=== PATIENT | male | born 1980 | race Caucasian/White ===

== ENCOUNTER 2019-09-12 08:57 | Inpatient (IN) | payer BC, OTHER ==
[2019-09-12] MEDS ORDERED: fentaNYL 100 MCG/2 ML SDV ONE (10:14)
[2019-09-12] MEDS ORDERED: Propofol 200 MG/20 ML SDV ONE (10:14)
[2019-09-12] MEDS ORDERED: Midazolam 1 MG/ML 2 ML SDV ONE (10:14)
[2019-09-12] MEDS ORDERED: Dextrose 5%-Lactated Ringers 1,000 ML IV SCH (10:15)
--- NOTE | 2019-09-12 13:42 | US ---
Abdomen Ltd CLINICAL HISTORY: Liver lesion COMPARISON: CT scan 09/08/2019. TECHNIQUE: Real-time images were obtained through the right upper quadrant. FINDINGS: The liver contains a 1.7 x 1.3 x 1.2 cm well demarcated relatively homogeneous hyperechoic nodule. There is no other mass or cyst identified. No intrahepatic biliary dilatation is seen. There is a filling defect in the gallbladder this is nonmobile and nonshadowing. This could represent an adenomatous polyp. A gallbladder fold is also a consideration. There is no inflammatory change. The common bile duct measures 4 mm. . The right kidney has a normal appearance. The IVC is normal. There is no ascites IMPRESSION: 1.7 x 1.3 x 1.2 cm well-circumscribed hyperechoic nodule in the right lobe of the liver. This is consistent with a hepatic hemangioma. Persistent fixed filling defect in the gallbladder may represent the an adenomatous polyp or possibly a gallbladder fold. No stones are seen
[2019-09-12] MEDS ORDERED: Sodium Chloride 0.9% 1,000 ML IV SCH (16:00)
--- NOTE | 2019-09-12 16:24 | PCM.CONS ---
H&P History of Present Illness - General Date of Service: 09/12/19 Admit Problem/Dx: Admission Diagnosis/Problem Admission Diagnosis/Problem Mass History Limitations: Reports: No Limitations - History of Present Illness Initial Comments - Free Text/Narative: Mr. Rick is a 39-year-old gentleman who I been asked to see by Dr. Morris for hospitalist consult to assess medical risk for surgery. Mr. Rick has not felt well for the past 5 months and is experienced a 55 pound weight loss. In April of this past year he had difficulty with kidney stones resulting in decreased appetite, he recovered from that and then around the holidays was diagnosed with influenza A which again resulted in prolonged symptoms and further weight loss. He had been slowly feeling improved until the beginning of this month, since then has experienced progressive decrease in appetite, weakness, lightheadedness, and shortness of breath. CT scan was obtained of the abdomen and showed possible colon abnormality. Colonoscopy was performed today by Dr. Morris and shows probable colon malignancy. Laboratory studies have been obtained and he is found to be significantly anemic with a hemoglobin of 7.5 and microcytic indices. Iron levels are pending at this time. Has no history of significant cardiac or pulmonary disease and no significant risk factors for coronary artery disease. He otherwise has been fairly healthy denies recent symptoms of chest pain or pressure, PND, orthopnea, peripheral edema, or palpitations. No recent fevers, chills, sweats, cough, pleuritic pain , or hemoptysis. He has never had general anesthetic before, there is no family history of adverse reaction to general anesthesia. No history of clotting abnormalities, deep vein thrombosis, or pulmonary emboli. Right Abdominal Pain Score (Numeric/FACES): 3 - Related Data Allergies/Adverse Reactions: Allergies Allergy/AdvReac Type Severity Reaction Status Date / Time No Known Allergies Allergy Verified 09/12/19 09:30 Home Medications: Home Meds NK [No Known Home Meds] 12/02/13 [History] Past Medical History - Past Health History Medical/Surgical History: Denies Medical/Surgical History HEENT History: Reports: Impaired Vision Cardiovascular History: Reports: None Respiratory History: Reports: None Gastrointestinal History: Reports: Other (See Below) Other Gastrointestinal History: ABNORMAL CT OF ABDOMEN AND PELVIS. LOOSE STOOLS AND NO APPETITE Genitourinary History: Reports: None Musculoskeletal History: Reports: None Neurological History: Reports: None Psychiatric History: Reports: None Endocrine/Metabolic History: Reports: None Hematologic History: Reports: None Oncologic (Cancer) History: Reports: None Dermatologic History: Reports: None - Infectious Disease History Infectious Disease History: Reports: Chicken Pox - Past Surgical History Head Surgeries/Procedures: Reports: None HEENT Surgical History: Reports: Other (See Below) Other HEENT Surgeries/Procedures: WISDOM TEETH EXTRACTED Cardiovascular Surgical History: Reports: None Respiratory Surgical History: Reports: None GI Surgical History: Reports: None Endocrine Surgical History: Reports: None Musculoskeletal Surgical History: Reports: None Dermatological Surgical History: Reports: None Social & Family History - Family History Family Medical History: Noncontributory - Tobacco Use Smoking Status *Q: Never Smoker Second Hand Smoke Exposure: No - Caffeine Use Caffeine Use: Reports: Other - Recreational Drug Use Recreational Drug Use: No H&P Review of Systems - Review of Systems: Review Of Systems: See Below General: Reports: Weakness, Fatigue, Decreased Appetite. Denies: Fever, Chills HEENT: Reports: No Symptoms Pulmonary: Reports: Shortness of Breath. Denies: Wheezing, Pleuritic Chest Pain , Cough, Sputum, Hemoptysis Cardiovascular: Reports: Dyspnea on Exertion. Denies: Chest Pain, Palpitations , Orthopnea, PND, Edema, Lightheadedness, Syncope Gastrointestinal: Reports: No Symptoms Genitourinary: Reports: No Symptoms Musculoskeletal: Reports: No Symptoms Skin: Reports: No Symptoms Psychiatric: Reports: No Symptoms Neurological: Reports: No Symptoms Hematologic/Lymphatic: Reports: Anemia. Denies: Easy Bleeding, Easy Bruising Immunologic: Reports: Environmental Allergy, Mold Allergy. Denies: Anaphylaxis Exam - Exam Exam: See Below - Vital Signs Vital Signs: Last Vital Signs Temp 98.2 F 09/12/19 13:27 Pulse 78 09/12/19 13:27 Resp 16 09/12/19 13:27 BP 109/69 09/12/19 13:27 Pulse Ox 97 09/12/19 13:27 Weight: 162 lb - Exam Quality Assessment: DVT Prophylaxis General: Alert, Oriented, Cooperative, Mild Distress Neck: Supple, Trachea Midline, +2 Carotid Pulse wo Bruit Lungs: Clear to Auscultation, Normal Respiratory Effort Cardiovascular: Regular Rate, Regular Rhythm, Normal S1, Normal S2. No: Systolic Murmur, Diastolic Murmur GI/Abdominal Exam: Soft, Non-Tender, No Organomegaly, No Distention Extremities: Normal Inspection, Non-Tender, No Pedal Edema Skin: Warm, Dry, Intact Neuro Extensive - Mental Status: Alert, Oriented x3, Normal Mood/Affect, Normal Cognition, Memory Intact - Patient Data Lab Results Last 24 hrs: Laboratory Results - last 24 hr 09/12/19 09/12/19 09/12/19 Range/Units 13:06 13:06 13:06 WBC 8.9 (4.5-11.0) K/uL RBC 3.77 L (4.30-5.90) M/uL Hgb 7.5 L (12.0-15.0) g/dL Hct 26.4 L (40.0-54.0) % MCV 70 L (80-98) fL MCH 20 L (27-31) pg MCHC 28 L (32-36) % Plt Count 732 H (150-400) K/uL Neut % (Auto) 64 (36-66) % Lymph % (Auto) 26 (24-44) % [place] % (Auto) 10 H (2-6) % Eos % (Auto) 1 L (2-4) % Baso % (Auto) 0 (0-1) % Sodium 138 L (140-148) mmol/L Potassium 4.4 (3.6-5.2) mmol/L Chloride 102 (100-108) mmol/L Carbon Dioxide 30 (21-32) mmol/L Anion Gap 10.4 (5.0-14.0) mmol/L BUN 16 (7-18) mg/dL Creatinine 0.8 (0.8-1.3) mg/dL Est Cr Clr Drug Dosing 116.75 mL/min Estimated GFR (MDRD) > 60 (>60) Glucose 129 H (74-106) mg/dL Calcium 8.8 (8.5-10.1) mg/dL Phosphorus 4.0 (2.5-4.9) mg/dL Magnesium 1.8 (1.8-2.4) mg/dL Iron (65-175) ug/dL TIBC (250-450) ug/dl % Saturation (20-55) % Total Bilirubin 0.2 (0.2-1.0) mg/dL AST 12 L (15-37) U/L ALT 17 (12-78) U/L Alkaline Phosphatase 69 (46-116) U/L Total Protein 7.0 (6.4-8.2) g/dL Albumin 2.2 L (3.4-5.0) g/dL Globulin 4.8 H (2.3-3.5) g/dL Albumin/Globulin Ratio 0.5 L (1.2-2.2) Blood Type B POSITIVE Gel Antibody Screen Negative Crossmatch See Detail 09/12/19 Range/Units 15:35 WBC (4.5-11.0) K/uL RBC (4.30-5.90) M/uL Hgb (12.0-15.0) g/dL Hct (40.0-54.0) % MCV (80-98) fL MCH (27-31) pg MCHC (32-36) % Plt Count (150-400) K/uL Neut % (Auto) (36-66) % Lymph % (Auto) (24-44) % [place] % (Auto) (2-6) % Eos % (Auto) (2-4) % Baso % (Auto) (0-1) % Sodium (140-148) mmol/L Potassium (3.6-5.2) mmol/L Chloride (100-108) mmol/L Carbon Dioxide (21-32) mmol/L Anion Gap (5.0-14.0) mmol/L BUN (7-18) mg/dL Creatinine (0.8-1.3) mg/dL Est Cr Clr Drug Dosing mL/min Estimated GFR (MDRD) (>60) Glucose (74-106) mg/dL Calcium (8.5-10.1) mg/dL Phosphorus (2.5-4.9) mg/dL Magnesium (1.8-2.4) mg/dL Iron 9 L (65-175) ug/dL TIBC 217 L (250-450) ug/dl % Saturation 4 L (20-55) % Total Bilirubin (0.2-1.0) mg/dL AST (15-37) U/L ALT (12-78) U/L Alkaline Phosphatase (46-116) U/L Total Protein (6.4-8.2) g/dL Albumin (3.4-5.0) g/dL Globulin (2.3-3.5) g/dL Albumin/Globulin Ratio (1.2-2.2) Blood Type Gel Antibody Screen Crossmatch Result Diagrams: 09/12/19 13:06 09/12/19 13:06 Sepsis Event Note - Focused Exam Vital Signs: Vital Signs Temp Pulse Resp BP Pulse Ox 09/12/19 13:27 98.2 F 78 16 109/69 97 09/12/19 13:12 78 16 107/63 98 09/12/19 12:57 78 16 109/64 95 09/12/19 12:42 72 16 103/63 97 09/12/19 12:27 75 16 112/62 99 09/12/19 12:12 96.6 F L 69 16 107/57 L 98 09/12/19 12:06 96.8 F L 73 16 104/63 97 09/12/19 12:00 71 16 98/56 L 98 09/12/19 11:56 68 16 103/56 L 100 09/12/19 11:50 67 12 98/48 L 100 09/12/19 11:45 95.9 F L 70 12 99/54 L 100 09/12/19 09:28 98.2 F 91 16 130/82 97 Date Exam was Performed: 09/12/19 Time Exam was Performed: 16:19 *Q Meaningful Use (ADM) - VTE Risk Assess *Q Each Risk Factor Represents 1 Point: None Total Score 1 Point Risk Factors: 0 Each Risk Factor Represents 2 Points: None, Malignancy (present or previous) Total Score 2 Point Risk Factors: 2 Each Risk Factor Represents 3 Points: None Total Score 3 Point Risk Factors: 0 Consult PN Assessment/Plan Procedures: Procedures CHEST X-RAY 2VW FRONTAL&LATL (12/02/13) EMERGENCY DEPT VISIT (12/02/13) IMMUNIZATION ADMIN (12/02/13) INTMD RPR S/TR/EXT 7.6-12.5 (12/02/13) TDAP VACCINE 7 YRS/> IM (12/02/13) Problem List Initiated/Reviewed/Updated: Yes My Orders Last 24 Hours: My Active Orders 09/12/19 16:17 Sodium Ferric Gluconate Cmplex [Ferrlecit IV] 250 mg Sodium Chloride 0.9% [ Normal Saline] 100 ml IV ONETIME 09/13/19 16:00 Sodium Ferric Gluconate Cmplex [Ferrlecit IV] 250 mg Sodium Chloride 0.9% [ Normal Saline] 100 ml IV ONETIME Plan: ASSESSMENT AND RECOMMENDATIONS PROBABLE COLON CANCER-to undergo surgical resection tomorrow by Dr. Morris. He has no significant history of cardiopulmonary disease and no significant risk factors for coronary artery disease. Recent activity and associated symptoms of shortness of breath are likely secondary to his severe anemia. He is at low risk for general anesthetic. -Transfusion orders as per Dr. Morris -Postoperative care per Dr. Morris MICROCYTIC ANEMIA-likely secondary to ongoing slow blood loss and iron loss from colon mass -Level pending -IV iron replacement today and tomorrow -Begin oral iron replacement postoperatively Requesting Provider: LAURA Date Consult Requested: 09/12/19 Reason for Consult: Preoperative medical evaluation Patient History Reviewed: Yes
[2019-09-12] MEDS ORDERED: Sodium Ferric Gluconate Cmplex 250 MG in Sodium Chloride 0.9% 100 ML IV ONE (18:00)
[2019-09-13] MEDS ORDERED: Lidocaine 1% with EPINEPHrine 1:100,000 50 ML MDV ONE (06:32)
[2019-09-13] MEDS ORDERED: Bupivacaine 0.5% 50 ML MDV ONE (06:32)
[2019-09-13] MEDS ORDERED: fentaNYL 250 MCG/5 ML SDV ONE (10:37)
[2019-09-13] MEDS ORDERED: Glycopyrrolate 0.2 MG/ML 5 ML MDV ONE (10:38)
[2019-09-13] MEDS ORDERED: Propofol 200 MG/20 ML SDV ONE (10:38)
[2019-09-13] MEDS ORDERED: Rocuronium 50 MG/5 ML Vial ONE ×2 (10:38→13:36)
[2019-09-13] MEDS ORDERED: Dexamethasone 4 MG/ML SDV ONE (10:38)
[2019-09-13] MEDS ORDERED: Ondansetron 4 MG/2 ML SDV ONE (10:38)
[2019-09-13] MEDS ORDERED: Neostigmine Methylsulfate 1 MG/ML 5 ML Syringe ONE (10:38)
[2019-09-13] MEDS ORDERED: Succinylcholine 200 MG/10 ML MDV ONE (10:38)
[2019-09-13] MEDS ORDERED: Albuterol/Ipratropium 3.0-0.5 MG/3 ML Neb Soln ONE (11:17)
[2019-09-13] MEDS ORDERED: Albuterol/Ipratropium 3.0-0.5 MG/3 ML Neb Soln NEB ONE (11:30)
[2019-09-13] MEDS ORDERED: cefOXitin 2 GM in Sodium Chloride 0.9% 50 ML IV ONE (12:00)
[2019-09-13] MEDS ORDERED: Naloxone 0.4 MG/ML SDV IVPUSH PRN (12:00)
[2019-09-13] MEDS ORDERED: Lactated Ringers 1,000 ML ONE (12:55)
[2019-09-13] MEDS ORDERED: Meropenem 500 MG SDV ONE ×2 (13:00→13:11)
[2019-09-13] MEDS ORDERED: Linezolid 600 MG in Premix Bag 1 BAG IV ONE (14:45)
[2019-09-13] MEDS ORDERED: Naloxone 0.4 MG/ML SDV IV PRN (15:17)
[2019-09-13] MEDS ORDERED: diphenhydrAMINE 50 MG/ML SDV IVPUSH PRN (15:17)
[2019-09-13] MEDS ORDERED: Benzocaine/Cetylpyridinium/Menthol Lozenge MUCMEM PRN (15:30)
[2019-09-13] MEDS ORDERED: Ondansetron 4 MG/2 ML SDV IVPUSH PRN (15:31)
[2019-09-13] MEDS ORDERED: hydrOXYzine HCL 100 MG/2 ML SDV IM PRN (15:31)
[2019-09-13] MEDS ORDERED: Sodium Ferric Gluconate Cmplex 250 MG in Sodium Chloride 0.9% 100 ML IV ONE (16:00)
[2019-09-13] MEDS: fentaNYL 2,500 MCG in Sodium Chloride 0.9% 200 ML EPIDUR SCH (16:03)
[2019-09-13] MEDS: Dextrose 5%-Lactated Ringers 1,000 ML IV SCH (16:08)
[2019-09-13] MEDS: Pantoprazole 40 MG Vial IV SCH (16:08)
[2019-09-13] MEDS: Lactated Ringers 1,000 ML IV SCH (17:13)
[2019-09-13] MEDS: cefOXitin 2 GM in Sodium Chloride 0.9% 50 ML IV SCH ×2 (17:28→23:32)
[2019-09-14] MEDS: Linezolid 600 MG in Premix Bag 1 BAG IV SCH ×2 (02:00→13:46)
[2019-09-14] MEDS: Dextrose 5%-Lactated Ringers 1,000 ML IV SCH ×2 (02:04→15:23)
[2019-09-14] MEDS: cefOXitin 2 GM in Sodium Chloride 0.9% 50 ML IV SCH ×4 (05:19→23:47)
[2019-09-14] MEDS: Magnesium Sulfate/Water 2 GM in Premix Bag 1 BAG IV SCH ×3 (08:24→21:09)
[2019-09-14] MEDS: fentaNYL 2,500 MCG in Sodium Chloride 0.9% 200 ML EPIDUR SCH (09:44)
[2019-09-14] MEDS ORDERED: Sodium Ferric Gluconate Cmplex 250 MG in Sodium Chloride 0.9% 100 ML IV ONE (10:00)
[2019-09-14] MEDS ORDERED: Lactated Ringers 500 ML IV ONE ×2 (14:15→17:30)
[2019-09-14] MEDS: Lactated Ringers 1,000 ML IV SCH (15:20)
[2019-09-14] MEDS ORDERED: Dextrose 5%-Lactated Ringers 1,000 ML IV SCH ×2 (16:00→22:00)
[2019-09-14] MEDS: Pantoprazole 40 MG Vial IV SCH (17:09)
[2019-09-14] MEDS ORDERED: Furosemide 20 MG/2 ML VIAL IVPUSH ONE (22:03)
[2019-09-14] MEDS ORDERED: Lactated Ringers 750 ML IV ONE (22:03)
[2019-09-14] MEDS ORDERED: Lactated Ringers 1,000 ML IV SCH (23:00)
[2019-09-15] MEDS: Magnesium Sulfate/Water 2 GM in Premix Bag 1 BAG IV SCH ×4 (02:09→20:27)
[2019-09-15] MEDS: Linezolid 600 MG in Premix Bag 1 BAG IV SCH ×2 (02:09→15:07)
[2019-09-15] MEDS: cefOXitin 2 GM in Sodium Chloride 0.9% 50 ML IV SCH ×3 (06:05→17:01)
[2019-09-15] MEDS ORDERED: Meropenem 500 MG SDV ONE (06:32)
[2019-09-15] MEDS ORDERED: Bupivacaine 0.5% 50 ML MDV ONE (06:32)
[2019-09-15] MEDS ORDERED: Lidocaine 1% with EPINEPHrine 1:100,000 50 ML MDV ONE (06:32)
[2019-09-15] MEDS: fentaNYL 2,500 MCG in Sodium Chloride 0.9% 200 ML EPIDUR SCH (06:50)
[2019-09-15] MEDS ORDERED: Propofol 200 MG/20 ML SDV ONE (07:09)
[2019-09-15] MEDS ORDERED: fentaNYL 100 MCG/2 ML SDV ONE (07:09)
[2019-09-15] MEDS ORDERED: Ropivacaine 36 ML, dexAMETHasone 8 MG, EPINEPHrine 0.4 MG, Sodium Chloride 0.9% 41.6 ML NERVRT SCH ×4 (07:15)
[2019-09-15] MEDS ORDERED: HYDROmorphone 1 MG/ML Syringe IV PRN (08:56)
--- NOTE | 2019-09-15 09:10 | CR ---
CHEST: 2 view CLINICAL HISTORY:Fever COMPARISON:2013 FINDINGS: There is an NG tube in place. Tip is in the fundus of the stomach. The heart size, pulmonary vascularity and hilar structures are normal. No infiltrate effusion or pneumothorax is seen. IMPRESSION: No acute cardiopulmonary process. NG tube described above
--- NOTE | 2019-09-15 09:18 | PN ---
DATE OF SERVICE: 09/14/2019 SUBJECTIVE: Michelle has an epidural. States his pain is controlled. NG put out 200 mL. BEATRIZ drains put out 170 and 55 mL. Vital signs have been stable. Oral intake has been ice chips with the NG in and his urine output total is 545 via Turpin catheter. REVIEW OF SYSTEMS: Remainder of review of systems negative for any pertinent positives and negatives. OBJECTIVE: GENERAL: Michelle Rick is a 39-year-old male. VITAL SIGNS: TPR at 07:25, 97.9; 75; 16; blood pressure 93/51. HEENT: Negative. NECK: Supple. HEART: Regular rate and rhythm. LUNGS: Clear. ABDOMEN: Dressing dry and intact. Abdominal binder is on. BEATRIZ drains 170 and 55 output for the past 24 hours of a light pink drainage. EXTREMITIES: Without peripheral edema. ASSESSMENT: Exploratory laparotomy with: 1. Right colectomy with en bloc radical right nephrectomy and small bowel resection. 2. Drainage of pericolonic abscess. 3. Excision of large retroperitoneal fat invaded by tumor. 4. Small bowel resection. 5. 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 6. Pericolonic abscess. 7. Umbilical hernia. 8. Date of surgery: 09/13/2019. Surgeon: Hipolito Morris MD. PLAN: 1. Schedule and have consent signed for delayed primary closure with IV/local/TAP block, , 09/15/2019 at 0715, Hipolito Morris MD. 2. Magnesium 2 g q.6 hours x72 hours IV. 3. Check CBC, CMP, and phos in a.m., and n.p.o. after midnight. 4. We will evaluate p.r.n. or in a.m. 5. Discontinue lactated Ringer's at 1600. 6. D5 LR IV, rate 125 mL per hour, starting at 1600. Alejandra Dial PA-C /[id number]
[2019-09-15] MEDS: Tamsulosin 0.4 MG Cap.ER PO SCH ×2 (09:41→20:35)
[2019-09-15] MEDS: Docusate Sodium 100 MG Cap PO SCH ×2 (09:41→20:33)
[2019-09-15] MEDS: Ibuprofen 600 MG Tab PO SCH ×3 (09:41→22:56)
[2019-09-15] MEDS: Bisacodyl 5 MG Tab PO SCH ×2 (09:41→20:33)
[2019-09-15] MEDS: Acetaminophen 500 MG Tab PO SCH ×3 (09:41→22:56)
[2019-09-15] MEDS: Dextrose 5%-Lactated Ringers 1,000 ML IV SCH ×2 (09:41→20:29)
--- NOTE | 2019-09-15 11:51 | PN ---
DATE OF SERVICE: 09/15/2019 SUBJECTIVE: Michelle is n.p.o. He will be having delayed primary closure. Yesterday, his urine output was decreased. He was given lactated Ringer boluses with 1 dose of Lasix 10 mg. His urine output has increased. He had a temperature max of 100.9. Oral intake on ice chips was 300. Urine output 3075. NG put out 400 mL. BEATRIZ drain 1 put out 135 mL of a serosanguineous drainage and BEATRIZ drain 2 put out 110 of a serosanguineous drainage. The pain is controlled with epidural. REVIEW OF SYSTEMS: Remainder of review of systems negative for any pertinent positives and negatives. OBJECTIVE: GENERAL: Michelle Rick is a pleasant 39-year-old male. VITAL SIGNS: TPR at 0899; 99.1, 86, 12, blood pressure 122/54. HEENT: Negative. NECK: Supple. HEART: Regular rate and rhythm. LUNGS: Clear. ABDOMEN: Dressings dry and intact. Abdominal binder is on. EXTREMITIES: Without peripheral edema. ASSESSMENT: 1. Exploratory laparotomy with right colectomy with en bloc, radical right nephrectomy, and small bowel resection. 2. Drainage of pericolonic abscess. 3. Excision of large area of retroperitoneal fat invaded by tumor. 4. Small bowel resection. 5. Umbilical hernia repair. Date of surgery: 09/13/2019. Surgeon: Hipolito Morris MD. PLAN: Orders to be written after delayed primary closure. The patient will be given 1 unit of packed red blood cells. Turpin and NG will be discontinued. He will come back to floor and after getting a dose of Tylenol and Motrin, the epidural will be removed. Urine culture and sensitivity pending. Continue good pulmonary toilet. Formal orders to be written per Hipolito Morris MD, post delayed primary closure. We will evaluate p.r.n. or in a.m. Alejandra Dial PA-C /[id number]
[2019-09-15] MEDS: Pantoprazole 40 MG Vial IV SCH (17:01)
[2019-09-16] MEDS: cefOXitin 2 GM in Sodium Chloride 0.9% 50 ML IV SCH ×5 (00:32→23:02)
[2019-09-16] MEDS: Magnesium Sulfate/Water 2 GM in Premix Bag 1 BAG IV SCH ×4 (01:23→20:05)
[2019-09-16] MEDS: Linezolid 600 MG in Premix Bag 1 BAG IV SCH (04:27)
[2019-09-16] MEDS: Acetaminophen 500 MG Tab PO SCH ×3 (05:19→09:24)
[2019-09-16] MEDS: Ibuprofen 600 MG Tab PO SCH ×3 (05:19→09:24)
[2019-09-16] MEDS: Bisacodyl 5 MG Tab PO SCH ×2 (08:56→20:08)
[2019-09-16] MEDS: Docusate Sodium 100 MG Cap PO SCH ×2 (08:56→20:09)
[2019-09-16] MEDS: Acetaminophen 500 MG Tab PO PRN ×2 (16:02→22:25)
[2019-09-16] MEDS: Ibuprofen 600 MG Tab PO PRN (16:02)
[2019-09-16] MEDS: Pantoprazole 40 MG Vial IV SCH (16:04)
[2019-09-16] MEDS: Tamsulosin 0.4 MG Cap.ER PO SCH (20:09)
[2019-09-16] MEDS: Dextrose 5%-Lactated Ringers 1,000 ML IV SCH (22:21)
[2019-09-17] MEDS: Magnesium Sulfate/Water 2 GM in Premix Bag 1 BAG IV SCH (01:40)
[2019-09-17] MEDS: Ibuprofen 600 MG Tab PO PRN ×3 (03:31→16:20)
[2019-09-17] MEDS: cefOXitin 2 GM in Sodium Chloride 0.9% 50 ML IV SCH ×3 (05:18→17:45)
[2019-09-17] MEDS: Bisacodyl 5 MG Tab PO SCH (08:21)
[2019-09-17] MEDS: Docusate Sodium 100 MG Cap PO SCH ×3 (08:21→20:29)
[2019-09-17] MEDS ORDERED: Bisacodyl 5 MG Tab PO PRN (08:42)
[2019-09-17] MEDS ORDERED: Haloperidol 5 MG Tab PO PRN (08:43)
[2019-09-17] MEDS: Multivitamins with Iron/Calcium/Folic Acid/Minerals Tab PO SCH (09:17)
[2019-09-17] MEDS: Potassium Phos in 0.9 % NaCl 15 MMOL in Premix Bag 1 BAG IV SCH ×6 (09:45→16:22)
[2019-09-17] MEDS: Acetaminophen 500 MG Tab PO PRN (11:21)
[2019-09-17] MEDS: HYDROmorphone 1 MG/ML Syringe IV PRN ×2 (12:49→21:56)
[2019-09-17] MEDS: Pantoprazole 40 MG Vial IV SCH (16:23)
[2019-09-17] MEDS ORDERED: Scopolamine 1.5 MG Transdermal Patch TRDERM PRN (18:18)
[2019-09-17] MEDS: Ketorolac 10 MG Tab PO SCH (19:41)
[2019-09-17] MEDS: Tamsulosin 0.4 MG Cap.ER PO SCH ×2 (19:45→20:29)
[2019-09-17] MEDS ORDERED: Furosemide 20 MG/2 ML VIAL IVPUSH ONE (20:24)
[2019-09-17] MEDS ORDERED: Cyclobenzaprine 10 MG Tab PO PRN (20:25)
[2019-09-17] MEDS: Dextrose 5%-Lactated Ringers 1,000 ML IV SCH (23:20)
[2019-09-18] MEDS: cefOXitin 2 GM in Sodium Chloride 0.9% 50 ML IV SCH ×4 (00:21→17:56)
[2019-09-18] MEDS: HYDROmorphone 1 MG/ML Syringe IV PRN ×3 (00:28→07:10)
[2019-09-18] MEDS: Ketorolac 10 MG Tab PO SCH ×4 (01:20→17:56)
[2019-09-18] MEDS ORDERED: Sodium Chloride 0.9% 10 ML Syringe IV PRN (07:59)
[2019-09-18] MEDS: HYDROmorphone 2 MG Tab PO PRN ×4 (08:54→20:38)
[2019-09-18] MEDS: Furosemide 20 MG/2 ML VIAL IV SCH ×2 (08:55→17:56)
[2019-09-18] MEDS: Potassium Chloride 20 MEQ Tab.ER PO SCH ×2 (08:55→16:48)
[2019-09-18] MEDS: Docusate Sodium 100 MG Cap PO SCH ×2 (09:00→20:37)
[2019-09-18] MEDS: Multivitamins with Iron/Calcium/Folic Acid/Minerals Tab PO SCH (09:00)
--- NOTE | 2019-09-18 14:23 | PN ---
DATE OF SERVICE: 09/16/2019 The patient has been afebrile with stable vital signs. Does run a low heart rate in the 30s to 40s, sometimes 50s. Otherwise, clinically asymptomatic. Urine output remains satisfactory. There is no flatus or bowel movement as of yet, we will continue the oral bowel stimulation. I think at this point, we can discontinue the Zyvox and continue with the meropenem. Hemoglobin is 9.0, we will give him 1 unit of the packed RBCs today and recheck some labs in the morning. Otherwise, maximize activity and work with pulmonary toilet. Hipolito Morris MD /[id number]
--- NOTE | 2019-09-18 14:32 | OR ---
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 PROCEDURE: Flexible colonoscopy with biopsies of the cecal mass. ANESTHESIA: IV sedation. INDICATION FOR PROCEDURE: This is a 39-year-old male presenting with several week history of right flank pain. He independently obtained a CT scan in [place], which showed a large mass that appears to be probably locally extensive in the cecum. He was noted on Thursday to have a hemoglobin of 8.5 and that is down to 7.5 today. The plan is to proceed with a flexible colonoscopy with biopsies as indicated. Potential risks including bleeding and perforation were discussed, and the patient wishes to proceed. DETAILS OF PROCEDURE: Patient was taken to the operating room, placed in a left lateral decubitus position. IV sedation was administered, after which the initial digital rectal exam was performed and was unremarkable. Colonoscope was passed to the level of the cecum. At the cecum, there was a large mass which occupied roughly 3/4 of the circumference of the lumen. This had a fleshy friable surface of the tissue which had some blood on it even before any manipulation of biopsies was undertaken. Multiples biopsies were then obtained from the area, but these were limited as this will likely cause some additional bleeding and in all likelihood we will be looking at resection of this without need for histologic diagnosis. Scope was then withdrawn and the above findings were reconfirmed with no additional pathology being identified. The patient was taken to the recovery room in satisfactory condition. Hipolito Morris MD /[id number]
--- NOTE | 2019-09-18 14:41 | OR ---
DATE OF PROCEDURE: 09/15/2019 SURGEON: Hipolito Morris MD PREOPERATIVE DIAGNOSIS: Open abdominal incision. POSTOPERATIVE DIAGNOSIS: Open abdominal incision. OPERATIVE PROCEDURE: Delayed primary closure of open abdominal incision. ANESTHESIA: Local plus IV sedation. INDICATION FOR PROCEDURE: The patient is 48 hours status post complicated right colon resection. At the time of the original procedure, primary closure was felt to have a high rate of wound infection and therefore the wound was packed open for a planned delayed primary closure at this time. Potential risks including bleeding and infection were reviewed, and the patient wishes to proceed. DETAILS OF PROCEDURE: The patient was taken to the operating room and placed in a supine position. IV sedation was administered, after which the operative dressing was taken down and the wound was inspected and found to be clean. The wound was then prepped and draped. Bilateral subcostal transversus abdominis plane blocks were then placed using ultrasound guidance, and the wound edges were anesthetized with 1% lidocaine mixed with Marcaine. The incision was irrigated with meropenem-containing saline solution and then the midline incision was then closed with some 3-0 Vicryl stitch deep and a 4-0 Vicryl subdermal stitch and twan for the skin. Dressing was applied. The patient was taken to the recovery room in satisfactory condition. There were no evident complications. Hipolito Morris MD /[id number]
--- NOTE | 2019-09-18 14:53 | PN ---
DATE OF SERVICE: 09/17/2019 The patient has been afebrile with stable vital signs. He did move his bowels and will begin a full liquid diet today. Otherwise, he is getting hiccups when he tries to eat. We will try and empirically give him some Haldol prior to his meals. He will get a second dose of ferric gluconate infused today. Hemoglobin was up to 9.7, so he would not need any additional transfusions. Potassium is marginally low. We will give him some additional K- Phos today and recheck some labs in the morning. We will switch to oral pain medication, he may be ready for discharge home tomorrow. Hipolito Morris MD /[id number]
[2019-09-18] MEDS ORDERED: Pantoprazole 40 MG Tab.CR PO SCH (16:30)
[2019-09-18] MEDS: Tamsulosin 0.4 MG Cap.ER PO SCH (20:37)
[2019-09-19] MEDS: Ketorolac 10 MG Tab PO SCH ×2 (00:29→05:51)
[2019-09-19] MEDS: cefOXitin 2 GM in Sodium Chloride 0.9% 50 ML IV SCH ×2 (00:29→05:51)
[2019-09-19] MEDS: HYDROmorphone 2 MG Tab PO PRN ×2 (02:21→10:16)
--- NOTE | 2019-09-19 08:05 | PN ---
DATE OF SERVICE: 09/12/2019 ADMISSION NOTE:: The patient was admitted today after his colonoscopy confirmed a large cecal mass. By CT scan, this appears to probably be locally extensive. He had a hemoglobin of 8.5 last Thursday, and it is 7.5 today, so he is undergoing some active bleeding, which was confirmed endoscopically as well. After discussion of the treatment options, the patient and wished to be admitted. The plan today will be to proceed with a transfusion of 3 units of packed RBCs. There was some question of whether or not there was a mass involving the liver on the CT scan. I did obtain an ultrasound today, which showed this to be a hemangioma, and there appears to be no evidence of any liver disease per se. Plan will be to admit the patient and transfuse 3 units of packed RBCs. We will recheck the hemoglobin in the morning and proceed with resection tomorrow. This would include an obvious right colectomy, along with possible additional resection such as right nephrectomy, should the ureter be involved in the tumor mass, as well as debridement of abdominal wall and any additional areas of tumor involvement that might be needed to be resected. Potential risks including bleeding, infection, injury to underlying viscera, possible leaks from GI tract closures, possibility that the lesion may not be entirely resectable were all reviewed with the patient and , and they wish to proceed. The surgery will be scheduled tomorrow. Hipolito Morris MD /[id number]
[2019-09-19] MEDS ORDERED: Celecoxib 200 MG Cap PO SCH (09:00)
[2019-09-19] MEDS: Multivitamins with Iron/Calcium/Folic Acid/Minerals Tab PO SCH (09:52)
[2019-09-19] MEDS: Docusate Sodium 100 MG Cap PO SCH (09:52)
--- NOTE | 2019-09-19 11:11 | PN ---
DATE OF SERVICE: 09/18/2019 The patient has been afebrile with stable vital signs. Pain control has been an issue over the last 24 hours, but he looks fairly comfortable. At this point, we will switch over to oral Dilaudid today with a 2 to 4 mg q.4 hours p.r.n. dose. Otherwise, there was felt to be some fluid overload last night and did respond well to Lasix. We gave him 2 additional dose of Lasix today and his potassium is 3.8. We will prophylax him with 40 mEq of KCl orally, otherwise, he may be ready for discharge home tomorrow. Hipolito Morris MD /[id number]
--- NOTE | 2019-09-19 11:42 | OR ---
DATE OF PROCEDURE: 09/13/2019 SURGEON: Hipolito Morris MD PREOPERATIVE DIAGNOSIS: Locally-advanced right colon carcinoma. POSTOPERATIVE DIAGNOSES: 1. Locally-advanced right colon carcinoma including adherence to retroperitoneum and right ureter as well as a point of adherence to loop of small bowel. 2. Pericolonic abscess. 3. Umbilical hernia. OPERATIVE PROCEDURES: Exploratory laparotomy with, 1. Right colectomy with en bloc right radical nephrectomy and small bowel resection (01282, 07086, 43128). 2. Drainage of pericolonic abscess (96643). 3. Excision of large area of retroperitoneum including peritoneal and retroperitoneal fat and adjacent abdominal wall peritoneum and preperitoneal fat (66591). 4. Additional small bowel resection (90028). 5. Umbilical hernia repair (85743). 6. Placement of Interceed mesh underneath incision and pelvic spicer to limit postoperative adhesion formation (21081). ANESTHESIA: General plus epidural. INDICATION FOR PROCEDURE: This is a 39-year-old male presenting with a several-week history of right flank pain and . He arranged a CAT scan of the abdomen and pelvis himself in [place] last week, which showed what appeared to be a locally-advanced carcinoma of the right colon. Hemoglobin obtained in the clinic last [place], i.e., four days ago was 8.5 and yesterday it was noted to be 7.5, with the patient having some ongoing bleeding. The plan is to proceed with an exploratory laparotomy with resection of the mass by means of a right colectomy. The patient appeared to have some infiltration into the lateral abdominal wall as well as retroperitoneum posterior to the right colon, which may involve the right ureter, which may necessitate a right nephrectomy in order to get tumor clearance. His left kidney is noted to function normally. Otherwise, potential risks of the procedure including bleeding, infection, injury to underlying viscera, possible leaks from GI tract closures, possibility that the tumor may not be resectable due to invasion into organs such as the adjacent vena cava, as well as the possibility of cardiopulmonary, septic, or hemorrhagic complications leading to were all discussed, and the patient wishes to proceed. He is aware that he almost certainly will require postoperative chemotherapy and possibly radiation treatment. OPERATIVE FINDINGS: Upon entering the peritoneal cavity, there was only scant amount of ascitic fluid, and this was sent for cytology. There was no evidence of any peritoneal carcinomatosis however. As expected, the patient had a large mass in the right colon more or less at the junction of the cecum and ascending colon. This was densely fixed posteriorly as well as laterally to the retroperitoneum and lateral abdominal wall. As one began dissection in the plane overlying the musculature of the retroperitoneum adjacent to the abdominal wall, peeling back the adherent peritoneum and preperitoneal fat, maintaining a plane of dissection more or less directly over the musculature of the lateral abdominal muscle, which at this point would be transverse abdominis muscle; and then over the iliopsoas muscle, a plane of dissection was able to be established. As one peeled this up, an abscess was encountered and this was drained. Gram stain on this showed a gram-positive cocci. As one continued at tissue plane upward, it was obvious that the right ureter was meshed into the area of tumor involvement. We once again confirmed that the left kidney was functional via the CT report as well as visually looking at the CT scan and decided to proceed then with an en bloc right nephrectomy. The distal small bowel was then divided and then the plane of dissection then continued along the vena cava. Fortunately, the vena cava was free of any adherence to the tumor mass and vena cava eventually was skeletonized on its right and anterior aspects from the bifurcation of the vena cava up to the area above the right renal vein. The transverse colon was then divided just at right of the middle colic vessels. There was some concern for lymphadenopathy in both the ileocolic and right colic vascular arcades and also some extending into the mesentery of the transverse colon. Although, none of those lymph nodes remained in place. There was not any obvious periaortic lymphadenopathy. A loop of small bowel was also adherent to the tumor mass, and this was divided proximally and distally and taken out en bloc with the right colon and right kidney. After removal of the specimen, there were some scattered areas of retroperitoneal soft tissue that could possibly be malignant. This was all cleared to an extent possible with no obvious gross tumor being left in place. A segment of small bowel distally was then noted to have become ischemic, and this was then also resected with additional small bowel resection. The liver was also examined grossly. What was identified as a hemangioma of right lobe of the liver, was actually able to be visualized on the surface of the right lobe and was consistent with hemangioma as described on the ultrasound yesterday. DETAILS OF PROCEDURE: The patient was taken to the operating room. After general endotracheal anesthesia was induced, a Turpin catheter was inserted, and the abdomen was prepped and draped. Nasogastric tube had been placed as well at that time. Prior to general anesthetic, an epidural catheter was placed and infusion began before the incision was made. A midline incision from roughly a handsbreadth below the umbilicus to nearly up to the xiphoid was made and carried down through the skin and subcutaneous tissue and then fascia. During the course of the entrance to the abdomen, the patient was noted to have a non- incarcerated umbilical hernia containing some preperitoneal fat. This was then excised. Upon entering the abdomen, general exploration was undertaken with the above-noted findings. There was a small amount of fluid in the pelvis and it was evacuated and sent for cytologic evaluation. At this point, the lateral peritoneal reflection of the cecum and ascending colon was divided in a plane anterior to where there was an inflammation or tumor adherence. This dissection was then continued downward inferior to the cecum. This allowed entrance into the retroperitoneal and preperitoneal spaces, allowed by blunt dissection elevating the right colon upward including the retroperitoneal fat and adherent peritoneum to the tumor mass. Early in the course of this dissection, an abscess cavity was encountered. This was evacuated and cultures were obtained. Initial Gram stain showed gram-positive cocci. At that point, the distal small bowel was divided, and this then allowed further dissection superiorly. As noted, at that point, the ureter was entrapped within the area between the tumor and adjacent to the retroperitoneal fat. We once again confirmed that the left kidney was noted to be normal on preoperative CT scan. The decision was then made to proceed with an en bloc right nephrectomy. The ureter was divided at a point just above the bifurcation of the vena cava, and this was then swept up with the mass as well as attached retroperitoneum. The dissection continued medially along the vena cava with which there was a smooth dissection plane. As one approached in the renal vessels, these were taken flush with the vena cava with the CASSIA stapler. The lateral abdominal peritoneum above the area of mass was then extended upward to include the area around the kidney, and the kidney was mobilized medially away from the retroperitoneal attachments. Some additional vasculature to the area of the adrenal gland was divided with CASSIA stapler. At this point, the transverse colon was divided just to the right of the middle colic vessels. The mesentry between the 2 points of the bowel division was then divided with the point of proximal transsection being at the base of the right colic and ileocolic arteries, thus removing that bundle of nodes. All of this would be done with CASSIA twan. The adherent small bowel to the tumor was then divided proximally and distally, and its mesentry also divided and that specimen then delivered from the field, containing the right colon and attached tumor retroperitoneum as well as right kidney and ureter and adherent small bowel. Inspection of the area of retroperitoneum showed some scattered areas of additional fat and retroperitoneal soft tissue, some of which may be tumor and some of which may be benign fat. The area was then irrigated with water containing meropenem and Zyvox solution as initial point of irrigation. The small bowel distally was noted to be somewhat devascularized likely related to the division of mesentery of the original small bowel and distal small bowel. This was then resected with a CASSIA stapler as was the underlying mesentery and that sent as a separate specimen. At this point, anything grossly resembling tumor had been excised with there being no obvious gross tumor being left behind, but obviously the degree of attachment to the retroperitoneum was such that there was most certainly some microscopic tumor present in that general vicinity of the tumor. The ileocolic anastomosis was then accomplished with 2 internal firings of the Endo-CASSIA 60 mm stapler, common opening was closed transversely with the same stapler and the angles anastomosed and mesenteric defect approximated with some 3-0 Vicryl stitch along with them being reinforced with some fibrin sealant. At this point, the abdomen was generally irrigated with a meropenem-Zyvox containing sterile water once again with water being used to theoretically help lyse any free tumor cells that might be present. Two Ronen-Terrell drains were placed on the right upper quadrant and draped across the areas of the dissection and abscess location. To limit recurrent adhesion formation, Interceed mesh was placed x2 underneath the incision and extending down toward the pelvis. Some of the omentum was then mobilized downward into the area of the dissection as well, although, it would not entirely fill that area. This would be helpful in the event that the patient might need some local radiation treatment in the future by displacing the small bowel from that surface at least partially. Midline fascia was then approximated with a #2 Vicryl stitch, which included repair of the umbilical hernia and the incision was then left open at skin and subcutaneous tissue for a planned delayed primary closure in 48 hours. The patient was taken to the recovery room in satisfactory condition. There were no evident complications. Hipolito Morris MD /[id number]
--- NOTE | 2019-09-19 13:24 | PN ---
DATE OF SERVICE: 09/15/2019 The patient has been doing fairly well. At this point, we will leave the epidural catheter in a little after the surgery. We will load him with some Tylenol or ibuprofen and then proceed with removal of the epidural catheter and Turpin catheter later today. Otherwise, his wound is closed. We will keep the NG tube in for a brief period postoperatively, then remove later on this morning as well. Otherwise, maximize activity and work with pulmonary toilet. His hemoglobin is still in the 8.5 range. We will give him 1 unit of packed RBCs today as well. Hipolito Morris MD /[id number]
--- NOTE | 2019-09-20 01:18 | DISCH ---
ADMISSION DIAGNOSES: 1. Large mass in the cecum. 2. 55-pound weight loss. 3. History of kidney stones. 4. Anemia, hemoglobin 7.5. DISCHARGE DIAGNOSIS: 1. Flexible colonoscopy with biopsies of cecal mass, 09/12/2019. History: Michelle is a 39- year-old male with a several-week history of right flank pain. He independently got a CT scan in [place]; it showed a large mass that appears to be locally extensive in the cecum. Hemoglobin went from 8.5 prior to admission on 09/08 to 7.5 on 09/11. He was admitted after the colonoscopy to the hospital. 2. Exploratory laparotomy with: a. Right colectomy with en bloc right radical nephrectomy and small bowel resection. b. Drainage of pericolonic abscess. c. Excision of a large area of retroperitoneum, including peritoneal and retroperitoneal fat and adjacent abdominal wall, peritoneum, and preperitoneal fat. d. Additional small bowel resection. e. Umbilical hernia repair. f. Placement of Interceed mesh underneath the incision and pelvic spicer to limit postoperative adhesion formation. POSTOPERATIVE DIAGNOSES: 1. Locally advanced right colon carcinoma, including adherence to retroperitoneum and right ureter as well as point of adherence to a loop of small bowel. Date of surgery is 09/13/2019. 2. Pericolonic abscess. 3. Umbilical hernia. 4. Delayed primary closure for open abdominal incision on 09/15/2019. History: Michelle had his colonoscopy, as stated above, and after preoperative evaluation and discussion of the possible risks and possible complications, he wished to proceed with the above surgical procedure. HOSPITAL COURSE: He had no operative complications. On postoperative day 1, his magnesium was replaced. He was given lactated Ringer for decreased urine output. On 09/14, he had his delayed primary closure. He was given 1 unit of packed red blood cells. Turpin and NG were discontinued, and he was started on oral pain medication. On 09/16/2019, he remained afebrile. Heart rate does run in the 30s to 40s and occasionally 50s. He was asymptomatic. Urine output remained satisfactory. Hemoglobin was 9, and he was given 1 unit of packed red blood cells. On 09/16, he did have a bowel movement and was started on a full liquid diet. When he was trying to eat, he would get hiccups. He was started on Haldol and given 2. He was given ferrous gluconate the day before as well as on the . Hemoglobin was up to 9.7. Potassium was replaced, and he was given K-Phos. On 09/17, he was having difficulty with pain control. He was changed to Dilaudid, which seemed to help. Otherwise, he had some fluid overload and was given 2 doses of Lasix. Potassium remained at 3.8, and he was given 40 mEq of KCl to prevent any further hypokalemia. On 09/18/2019, vital signs remained stable. He was having bowel movements. The pain was controlled, and he was able to be discharged to home. PHYSICAL EXAMINATION: GENERAL: Michelle is a 39-year-old male. VITAL SIGNS: Height 5 feet 7 inches, weight is 181 pounds; TPR 98.8, 69, and 16; and blood pressure 144/90. HEENT: Negative. NECK: Supple. HEART: Regular rate and rhythm. LUNGS: Clear. ABDOMEN: [place] are intact. An abdominal binder is on. EXTREMITIES: Without peripheral edema. DISPOSITION: Discharged to home. CONDITION: Stable and improving. FOLLOWUP APPOINTMENTS: With Alejandra Dial PA-C, on 09/23/2019 at 10:30 a.m. and Oncology appointment for 09/21/2019. NEW PRESCRIPTIONS: 1. Tylenol 1000 mg q.6 hours p.r.n. pain. 2. Celebrex 200 mg b.i.d., #28. 3. Dilaudid 2 mg every 6 hours p.r.n. pain, #28. 4. Scopolamine patch was replaced to remove on , 09/22/2019. DISCHARGE INSTRUCTIONS: Diet: After discharge, regular diet as tolerated, drink 8 to 10 glasses of water a day. Activity: No lifting greater than 10 pounds for 6 weeks. Other activity: Walk at least 6 times daily inside your home. Driving: Do not drive for 1 week and while on narcotic pain medication. Shower/bathing: May shower. Notify provider if any increased pain, nausea, or vomiting. Keep the site clean and dry. Remove Aquacel dressing on , 09/22/2019. Wear abdominal binder for 6 weeks if tolerated. Use incentive spirometer 10 times every hour while awake for 1 week.
== END 2019-09-19 10:56 | disposition home or self-care (01) | DRG 330 ==
LOC: JP.SDS 08:57 → JP.2SS 14:45 → JP.MS 15:25
PROVIDERS: ADMIT Surgery; ATTEND Surgery
PROC: 30233N1 Transfusion of Nonautologous Red Blood Cells into Peripheral Vein, Percutaneous Approach (ICD-10-PCS; principal; 2019-09-12)
PROC: 0DBH8ZX Excision of Cecum, Via Natural or Artificial Opening Endoscopic, Diagnostic (ICD-10-PCS; 2019-09-12)
PROC: 0DTF0ZZ Resection of Right Large Intestine, Open Approach (ICD-10-PCS; 2019-09-13)
PROC: 0TT00ZZ Resection of Right Kidney, Open Approach (ICD-10-PCS; 2019-09-13)
PROC: 0TT60ZZ Resection of Right Ureter, Open Approach (ICD-10-PCS; 2019-09-13)
PROC: 0DB80ZZ Excision of Small Intestine, Open Approach (ICD-10-PCS; 2019-09-13)
PROC: 0WBH0ZZ Excision of Retroperitoneum, Open Approach (ICD-10-PCS; 2019-09-13)
PROC: 0D9 Gastrointestinal System, Drainage (ICD-10-PCS; 2019-09-13)
PROC: 0WQF0ZZ Repair Abdominal Wall, Open Approach (ICD-10-PCS; 2019-09-13)
PROC: 3E0M05Z Introduction of Adhesion Barrier into Peritoneal Cavity, Open Approach (ICD-10-PCS; 2019-09-13)
PROC: 0HQ7XZZ Repair Abdomen Skin, External Approach (ICD-10-PCS; 2019-09-15)
PROC: 30233N1 Transfusion of Nonautologous Red Blood Cells into Peripheral Vein, Percutaneous Approach (ICD-10-PCS; 2019-09-16)
DX: C18.9 Malignant neoplasm of colon, unspecified (principal); K63.0 Abscess of intestine; Z87.442 Personal history of urinary calculi; D64.9 Anemia, unspecified; H54.7 Unspecified visual loss; K42.9 Umbilical hernia without obstruction or gangrene
CPT/HCPCS: 36415; 36430; 36600; 51702; 71046; 71046-26; 76705; 76705-26; 80048; 80053; 82378; 83550; 83605; 83735; 84100; 85025; 85027; 86850; 86900; 86901; 86920; 86922; 87040; 87070; 87075; 87205; 88112; 88302; 88305; 88307; 88309; 88341; 88342; 94640; 94762; A9270-GY; C9113; J0171; J0330; J0694; J1100; J1170; J1940; J2020; J2185; J2250; J2405; J2704; J2710; J2795; J2916; J3010; J3410; J3475; J3490; J7030; J7050; J7120; J7121; J7620-GY; P9016

== ENCOUNTER 2019-09-27 09:29 | Day surgery (SDC) | payer OTHER ==
[~2019-09-27 09:29] MED LIST: Bupivacaine 0.5% 50 ML MDV ONE; Lidocaine 1% with EPINEPHrine 1:100,000 50 ML MDV ONE; Midazolam 1 MG/ML 2 ML SDV ONE; Naloxone 0.4 MG/ML SDV ONE; Propofol 200 MG/20 ML SDV ONE; fentaNYL 100 MCG/2 ML SDV ONE
[2019-09-27] MEDS ORDERED: MVI, Adult with Vitamin K 10 ML, Chromium/Copper/Mang/Selen/Zn 1 ML in Lactated Ringers... IV ONE ×3 (09:30)
[2019-09-27] MEDS ORDERED: ceFAZolin 2 GM in Premix Bag 1 BAG IV ONE (10:00)
[2019-09-27] MEDS ORDERED: Dextrose 5%-Lactated Ringers 1,000 ML IV SCH (11:00)
[2019-09-27] MEDS ORDERED: Propofol 200 MG/20 ML SDV ONE (12:35)
--- NOTE | 2019-09-28 15:23 | OR ---
DATE OF PROCEDURE: 09/27/2019 SURGEON: Hipolito Morris MD PREOPERATIVE DIAGNOSIS: Indication for central venous access. POSTOPERATIVE DIAGNOSIS: Indication for central venous access. OPERATIVE PROCEDURE: Placement of Bard PowerPort via left subclavian vein approach (69878). ANESTHESIA: Local plus IV sedation. INDICATION FOR PROCEDURE: This is a 39-year-old recently status post extensive surgery for a locally extensive cecal carcinoma. He is planning to undergo postoperative chemotherapy beginning in mid September and is to have a port placed at this time. Potential risks including bleeding, infection, injury to the lung and/or vasculature, and possibility of the port becoming occluded were all gone over, and the patient wishes to proceed. DETAILS OF PROCEDURE: The patient was taken to the operating room and placed in a supine position. IV sedation was administered, after which the upper chest and neck areas were prepped and draped. The left subclavian area was anesthetized with 1% lidocaine mixed with Marcaine and the left subclavian vein cannulated. Guidewire passed and manipulated into the superior vena cava. Some additional local was then injected, and a transverse infraclavicular incision was made and carried down through the skin, subcutaneous tissue, and through the pectoralis major fascia. A pocket was then bluntly created behind the pectoralis major fascia. The Bard port was assembled, flushed, and placed into the pocket. The catheter tip was cut such that the tip would be end of the junction of the superior vena cava and right atrium. Using the introducer and peel-away catheter, the Bard port catheter was then placed without difficulty. Good in and outflow was noted. Port was flushed with heparinized saline. The incision was closed with 2 layers of 3-0 and 4-0 Vicryl stitch deep and a 5-0 Vicryl subcuticular stitch. Dressing was applied. The patient was taken to the recovery room in satisfactory condition. Hipolito Morris MD /[id number]
== END 2019-09-27 15:03 | disposition home or self-care (01) ==
LOC: JP.SDS 09:29
PROVIDERS: ATTEND Surgery
DX: C18.0 Malignant neoplasm of cecum (principal); Z98.890 Other specified postprocedural states
CPT/HCPCS: 36415; 36561; 80053; 83735; 84100; 85027; C1788; J0690; J1642; J2250; J2704; J3010; J3490; J7120; J7121; J2310

== ENCOUNTER 2020-05-17 23:40 | Emergency (ER) | payer OTHER ==
--- NOTE | 2020-05-18 00:52 | EDM.PDOC ---
ED HPI GENERAL MEDICAL PROBLEM - General Chief Complaint: Chest Pain Stated Complaint: BLOOD PRESSURE Time Seen by Provider: 05/18/20 00:49 Source of Information: Reports: Patient History Limitations: Reports: No Limitations - History of Present Illness INITIAL COMMENTS - FREE TEXT/NARRATIVE: pt was concerned tonight because he had a elevated bp and pain in the rt shoulder. He had chemo today. He has a history of colon Ca. He had surgery for this last September 09. Onset: Today, Sudden Duration: Hour(s): Location: Reports: Other ( rt shoulder and his bp was elevated. ) Associated Symptoms: Reports: Shortness of Breath, Other ( shoulder pain. ) right neck Pain Score (Numeric/FACES): 8 chest pain Pain Score (Numeric/FACES): 3 right shoulder Pain Score (Numeric/FACES): 6 - Related Data Allergies Allergy/AdvReac Type Severity Reaction Status Date / Time No Known Allergies Allergy Verified 05/17/20 23:42 Home Meds: Home Meds Acetaminophen [Tylenol Extra Strength] 1,000 mg PO Q6H PRN tablet 09/19/19 [Rx] HYDROmorphone [Dilaudid] 2 mg PO Q6H PRN #28 tablet 09/19/19 [Rx] Ibuprofen [Motrin] 200 mg PO ASDIRECTED PRN 05/17/20 [History] diphenhydrAMINE [Benadryl] 25 mg PO ASDIRECTED PRN 05/17/20 [History] Past Medical History - Past Health History Medical/Surgical History: Denies Medical/Surgical History HEENT History: Reports: Impaired Vision Other HEENT History: wears glasses Cardiovascular History: Reports: None Respiratory History: Reports: None Gastrointestinal History: Reports: Other (See Below) Other Gastrointestinal History: ABNORMAL CT OF ABDOMEN AND PELVIS. LOOSE STOOLS AND NO APPETITE Genitourinary History: Reports: None, Other (See Below) Other Genitourinary History: right kidney removed Musculoskeletal History: Reports: None Neurological History: Reports: None Psychiatric History: Reports: None Endocrine/Metabolic History: Reports: None Hematologic History: Reports: Blood Transfusion(s) Oncologic (Cancer) History: Reports: Colon Dermatologic History: Reports: None - Infectious Disease History Infectious Disease History: Reports: Chicken Pox - Past Surgical History Head Surgeries/Procedures: Reports: None HEENT Surgical History: Reports: Other (See Below) Other HEENT Surgeries/Procedures: WISDOM TEETH EXTRACTED GI Surgical History: Reports: Other (See Below) Other GI Surgeries/Procedures: colon resection/right kidney removed/cecum resection. colon CA Oncologic Surgical History: Reports: None Social & Family History - Family History Family Medical History: No Pertinent Family History - Tobacco Use Tobacco Use Status *Q: Never Tobacco User - Caffeine Use Caffeine Use: Reports: None - Recreational Drug Use Recreational Drug Use: No ED ROS GENERAL - Review of Systems Review Of Systems: See Below Constitutional: Reports: No Symptoms HEENT: Reports: No Symptoms Respiratory: Reports: No Symptoms Cardiovascular: Reports: Other ( rt shoulder pain and his bp is elevated. ) Endocrine: Reports: No Symptoms GI/Abdominal: Reports: No Symptoms : Reports: No Symptoms Musculoskeletal: Reports: Other (pain in rt shoulder. ) Skin: Reports: No Symptoms ED EXAM, GENERAL - Physical Exam Exam: See Below Free Text/Narrative:: pt arrived with pain in rt shooulder and his bp is elevated. He had his last chemo treatment today. His bp is normally not elevated. Exam Limited By: No Limitations General Appearance: Alert, Anxious, Moderate Distress Ears: Normal TMs Nose: Normal Inspection Throat/Mouth: Normal Inspection Head: Atraumatic Neck: Other (pt has alot of muscle spasm in the posterior cervical and post rt shoulder area. ) Respiratory/Chest: No Respiratory Distress Cardiovascular: Regular Rate, Rhythm GI/Abdominal: Soft, Non-Tender (Male) Exam: Deferred Rectal (Males) Exam: Deferred Back Exam: Normal Inspection Extremities: Other (pt has marked muscle spasm in the rt post shoulder area. ) Neurological: Alert, Oriented Course - Vital Signs Last Recorded V/S: Last Vital Signs Temp 36.2 C 05/17/20 23:48 Pulse 79 05/18/20 01:20 Resp 15 05/17/20 23:48 BP 166/88 H 05/18/20 01:20 Pulse Ox 98 05/17/20 23:48 - Orders/Labs/Meds Orders: Active Orders 24 hr Category Date Time Status EKG Documentation Completion [RC] ASDIRECTED Care 05/18/20 00:26 Active EKG 12 Lead [EK] Routine Ther 05/18/20 00:26 Ordered Labs: Laboratory Tests 05/18/20 05/18/20 05/18/20 Range/Units 00:35 00:35 00:35 WBC 7.0 (4.5-11.0) K/uL RBC 4.42 (4.30-5.90) M/uL Hgb 15.1 H D (12.0-15.0) g/dL Hct 44.2 (40.0-54.0) % MCV 100 H (80-98) fL MCH 34 H (27-31) pg MCHC 34 (32-36) % Plt Count 252 (150-400) K/uL Neut % (Auto) 62 (36-66) % Lymph % (Auto) 30 (24-44) % [place] % (Auto) 6 (2-6) % Eos % (Auto) 1 L (2-4) % Baso % (Auto) 0 (0-1) % Sodium 137 L (140-148) mmol/L Potassium 3.8 (3.6-5.2) mmol/L Chloride 99 L (100-108) mmol/L Carbon Dioxide 30 (21-32) mmol/L Anion Gap 11.8 (5.0-14.0) mmol/L BUN 17 (7-18) mg/dL Creatinine 1.1 (0.8-1.3) mg/dL Est Cr Clr Drug Dosing 83.46 mL/min Estimated GFR (MDRD) > 60 (>60) Glucose 91 (74-106) mg/dL Calcium 9.3 (8.5-10.1) mg/dL Total Bilirubin 0.7 D (0.2-1.0) mg/dL AST 43 H (15-37) U/L ALT 96 H (12-78) U/L Alkaline Phosphatase 155 H (46-116) U/L Troponin I < 0.017 (0.000-0.056) ng/mL Total Protein 8.3 H (6.4-8.2) g/dL Albumin 3.5 (3.4-5.0) g/dL Globulin 4.8 H (2.3-3.5) g/dL Albumin/Globulin Ratio 0.7 L (1.2-2.2) Meds: Medications Discontinued Medications Generic Name Dose Route Start Last Admin Trade Name Freq PRN Reason Stop Dose Admin Baclofen 10 mg 05/18/20 01:23 05/18/20 01:49 Lioresal PO 05/18/20 01:24 10 mg ONETIME ONE Administration Ketorolac Tromethamine 60 mg 05/18/20 01:22 05/18/20 01:34 Toradol IM 05/18/20 01:23 60 mg ONETIME ONE Administration Metoprolol Tartrate 25 mg 05/18/20 01:07 05/18/20 01:20 Lopressor PO 05/18/20 01:08 25 mg ONETIME ONE Administration - Re-Assessments/Exams Free Text/Narrative Re-Assessment/Exam: 05/18/20 01:58 pt had normal ekg and a normal trop. He was given torodol 60 mg im and baclofen 10 mg ., Departure - Departure Time of Disposition: 01:59 Disposition: Home, Self-Care 01 Condition: Fair Clinical Impression: Muscle spasm of right shoulder, Elevated BP without diagnosis of hypertension Referrals: PCP,None [Primary Care Provider] - Forms: ED Department Discharge Care Plan Goals: moist warm packs to the post cervical and rt shoulder area, baclofen 10 mg bid to relax muscles, motrin 600mg qid as needed for pain, appt with Shane Mandel in the next 4-5 days to recheck bp. Sepsis Event Note (ED) - Evaluation Sepsis Screening Result: No Definite Risk - Focused Exam Vital Signs: Vital Signs Temp Pulse Pulse Resp BP BP Pulse Ox 05/18/20 01:20 79 166/88 H 05/17/20 23:48 36.2 C 72 15 180/109 H 98 05/17/20 23:46 36.2 C 72 15 180/109 H 98 - My Orders Last 24 Hours: My Active Orders 05/18/20 00:26 EKG Documentation Completion [RC] ASDIRECTED EKG 12 Lead [EK] Routine - Assessment/Plan Last 24 Hours: My Active Orders 05/18/20 00:26 EKG Documentation Completion [RC] ASDIRECTED EKG 12 Lead [EK] Routine
[2020-05-18] MEDS ORDERED: Metoprolol Tartrate 25 MG Tab PO ONE (01:07)
[2020-05-18] MEDS ORDERED: Ketorolac 60 MG/2 ML SDV IM ONE (01:22)
[2020-05-18] MEDS ORDERED: Baclofen 10 MG Tab PO ONE (01:23)
== END 2020-05-18 02:10 | disposition home or self-care (01) ==
LOC: JP.ED 23:40
DX: M62.838 Other muscle spasm (principal); R03.0 Elevated blood-pressure reading, without diagnosis of hypertension; Z85.038 Personal history of other malignant neoplasm of large intestine
CPT/HCPCS: 36415; 80053; 84484; 85025; 93005; 96372; 99283; A9270; J1885

== ENCOUNTER → 2020-10-02 | Day surgery (SDC) | payer OTHER ==
[~2020-10-02] MED LIST changes: -Bupivacaine 0.5% 50 ML MDV ONE; +Dextrose 5%-Lactated Ringers 1,000 ML IV SCH; -Lidocaine 1% with EPINEPHrine 1:100,000 50 ML MDV ONE; -Naloxone 0.4 MG/ML SDV ONE
--- NOTE | 2020-10-08 17:57 | OR ---
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 POSTOPERATIVE DIAGNOSES: 1. History of locally advanced right colon adenocarcinoma without evident persistent or recurrent disease. 2. Normal colonoscopic examination. OPERATIVE PROCEDURE: Flexible colonoscopy. ANESTHESIA: IV sedation. INDICATIONS FOR PROCEDURE: This is a 40-year-old male, status post a right hemicolectomy with en bloc right nephrectomy, small bowel resection in August 2019. The patient received postoperative chemotherapy and presently, per oncologic followup, is without evident disease, here to undergo followup colonoscopy at this point. The potential risks of the procedure including bleeding and perforation were discussed, and the patient wishes to proceed. DETAILS OF PROCEDURE: The patient was taken to the operating room and placed in a left lateral decubitus position. IV sedation was administered, after which the initial digital rectal exam was performed. It was unremarkable. Colonoscope was then passed to the level of the rectum with retroflexion revealing uncomplicated hemorrhoidal columns. Scope was then eventually passed to the level of the ileocolic anastomosis. To that level, the prep was quite good. There was no evidence of any recurrent disease or additional polypoid or other neoplastic changes within the colon. The ileocolic anastomosis was well healed with no signs of any recurrent disease at that level. Scope was then withdrawn, the above findings reconfirmed, and the procedure then concluded. The patient was taken to the recovery room in satisfactory condition. We will ask the following medical oncologist to recommend a followup colonoscopy timing. My own preference in this case would probably be in the next one or two years given the aggressive nature of the initial presentation. Hipolito Morris MD /[id number]
== END ==
LOC: JP.SDS 06:36
PROVIDERS: ATTEND Surgery
DX: Z08 Encounter for follow-up examination after completed treatment for malignant neoplasm (principal); K64.9 Unspecified hemorrhoids; Z85.038 Personal history of other malignant neoplasm of large intestine; Z98.0 Intestinal bypass and anastomosis status; Z90.49 Acquired absence of other specified parts of digestive tract; Z90.5 Acquired absence of kidney; Z98.890 Other specified postprocedural states
CPT/HCPCS: 45378; C1751; J1642; J2250; J2704; J3010; J7121